=== PATIENT | female | born 1990 | race Caucasian/White ===

== ENCOUNTER 2021-07-24 06:27 | Inpatient (IN) | payer OTHER, SELFPAY ==
--- NOTE | 2021-07-03 12:54 | PC.NURSE ---
HERMILO VILLATORO STATES ,HE IS SHEELA'S LEGAL GUARDIAN FOR FINANCES AND HOUSING. HERMILO STATES SHEELA LEGALLY CAN SIGN HER OWN CONSENTS FOR TREATMENT INSTRUCTED HERMILO -HE WILL NEED TO BRING A COPY OF LEGAL GUARDIANSHIP TO MEDICAL RECORDS SO IT CAN BE PLACED ON HER CHART AND SO HE CAN GET INFORMATION REGARDING SHEELA
[2021-07-24] VITALS (125 sets, daily range): BP systolic 81–145; BP diastolic 49–89; PULSE 60–254; RESP 16; TEMP 36.6–37; O2SAT 96–100; BMI 28.3
[2021-07-24] MEDS: OXYTOCIN 30 UNITS/NS 500 ML 30 UNITS/500 ML BAG IV CONT (07:13)
[2021-07-24 07:14] LABS: Basophils Percent Auto 0.4 % (0.2-1.2); Eosinophils Absolute Auto 0.1 K/mm3 (0-0.3); Eosinophils Percent Auto 0.9 % (0-4.4); Hematocrit 32.5 % (37.0-47.0); Hemoglobin 10.4 g/dL (12.0-15.0); Immature Granulocyte Absolute 0.08 K/mm3 (0.00-0.031); Immature Granulocyte Percent A 0.8 % (0-0.5); Lymphocytes Absolute Auto 2.05 K/mm3 (0.9-3.2); Lymphocytes Percent Auto 19.8 % (18.3-44.2); Mean Corpuscular Hemoglobin 26.8 pg (26-34); Mean Corpuscular Volume 83.8 fl (80-100); Mean Platelet Volume 10.1 fl (7.4-10.4); Monocytes Absolute Auto 0.8 K/mm3 (0.1-0.6); Monocytes Percent Auto 7.7 % (2.6-8.5); Neutrophils Absolute Auto 7.3 K/mm3 (1.3-6.7); Neutrophils Percent Auto 70.4 % (45.5-73.1); Platelet Count Result 264 k/mm3 (150-375); Red Blood Count 3.88 M/mm3 (4.2-5.4); White Blood Count 10.4 K/mm3 (4.5-10.0)
[2021-07-24] MEDS: LACTATED RINGERS 1,000 ML 125 ML IV CONT ×2 (07:14→09:44)
[2021-07-24] MEDS: AMPICILLIN 2 GM/NS 100 ML 2 GM/100 ML BAG IVPB (07:14)
--- NOTE | 2021-07-24 07:27 | WPDOBADMIT ---
Obstetrics - Admit Note Admission Note: record reviewed. No pertinent additions to the history and/or any subsequent changes in the physical findings that are not consistent with the expected course of the were found. IOL at 39 wks, gbs positive, SVE 2/60/-2 AROM moderate amount of clear odorless fluid Additions to the history and/or subsequent changes in the physical findings follow. None.
--- NOTE | 2021-07-24 07:33 | LDADM ---
This patient, Windy Robles, was admitted to Labor/Delivery/Recovery 105 on 07/24/21 at 06:27. Plans for labor, pain management and were discussed with patient. Patient/family oriented to hospital policies and general routines including ID bracelet, bed and alarms, visiting hours, pain management, procedures, bathroom and other care routines, personal items, smoking policy, room service/diet and guest tray routines, security routines, and visiting hours. Patient/Family are encouraged to report perceived risks to care and to ask questions if they do not understand what they are told or what they should do. See OBIX for further documentation.
[2021-07-24 08:52] LABS: Rapid Plasma Reagin Non-Reactive (NonReactive)
--- NOTE | 2021-07-24 09:28 | WPDANESEPPF ---
Anes - Initial Pre Proc Eval Procedure: labor epidural Date/Time: 07/24/21 09:28 Surgeon: Jann Rudolph MD Pre Op Diagnosis: labor pain Pre Op Diagnosis: Induction of Labor Patient Data Age: 30 Gender: F Height: 1.63 m Weight: 75 kg Last Vital Signs Temp 36.6 C 07/24/21 08:00 Pulse 90 07/24/21 09:25 BP 128/67 07/24/21 09:25 Pulse Ox 100 07/24/21 09:26 Allergies Allergy/AdvReac Type Severity Reaction Status Date / Time No Known Allergies Allergy Unknown Unverified 08/08/19 11:56 Home Medications Medication Instructions Recorded Confirmed Type ferrous sulfate 325 mg PO DAILY 07/03/21 07/03/21 History prenat.vits,leah,bbk-htav-ixqhx 1 tablet PO DAILY 07/03/21 07/03/21 History [ #2] Laboratory Tests 07/24/21 07/24/21 07/24/21 06:48 06:48 06:48 WBC 10.4 K/mm3 H K/mm3 (4.5-10.0) RBC 3.88 M/mm3 L M/mm3 (4.2-5.4) Hgb 10.4 g/dL L g/dL (12.0-15.0) Hct 32.5 % L % (37.0-47.0) MCV 83.8 fl fl (80-100) MCH 26.8 pg pg (26-34) MCHC 32.0 g/dl g/dl (32-36) RDW 14.0 % % (11.5-14.5) Plt Count 264 k/mm3 k/mm3 (150-375) MPV 10.1 fl fl (7.4-10.4) Immature Gran % (Auto) 0.8 % H % (0-0.5) Neut % (Auto) 70.4 % % (45.5-73.1) Lymph % (Auto) 19.8 % % (18.3-44.2) [place] % (Auto) 7.7 % % (2.6-8.5) Eos % (Auto) 0.9 % % (0-4.4) Baso % (Auto) 0.4 % % (0.2-1.2) Lymph # (Auto) 2.05 K/mm3 K/mm3 (0.9-3.2) [place] # (Auto) 0.8 K/mm3 H K/mm3 (0.1-0.6) Eos # (Auto) 0.1 K/mm3 K/mm3 (0-0.3) Baso # (Auto) 0.0 K/mm3 K/mm3 (0.0-0.1) Abs Immat Gran (auto) 0.08 K/mm3 H K/mm3 (0.00-0.031) Absolute Neuts (auto) 7.3 K/mm3 H K/mm3 (1.3-6.7) Absolute Nucleated RBC 0.0 K/mm3 K/mm3 (0.0-0.012) Nucleated RBC % 0.0 % % (0.0-0.2) RPR Non-reactive (NonReactive) Blood Type O Positive Antibody Screen Negative Patient hx anesthesia problems: none Family hx anesthesia problems: none [facility] Past Medical History Medical History (Updated 07/24/21 @ 09:28 by Bernardo Mcleod DO) Anxiety Autism Bipolar disorder Family History Family History (Updated 07/03/21 @ 12:20 by Kelly Gamez RN) Mother Dialysis patient Social History Social History Substance use: never Spiritual care concerns: No Anes - Eval Final PreProcedure Day of Procedure 07/24/21 09:28 Patient weight: overweight ASA classification: III Anesthesia type and monitoring: regional epidural and standard monitoring Informed Consent: The patient's anesthetic plan and its attendant risks and benefits were discussed with the patient/family/POA. Questions were solicited and answers provided to the satisfaction of the patient/family/POA.
[2021-07-24] MEDS: ONDANSETRON INJ 4 MG/2 ML VIAL IV PUSH (09:56)
[2021-07-24] MEDS: AMPICILLIN 1 GM/NS 50 ML 1 GM/50 ML BAG IVPB (11:15)
[2021-07-24] MEDS: fentaNYL CITRATE INJ (*CRX) 100 MCG/2 ML VIAL 50 MCG IV PUSH (11:15)
--- NOTE | 2021-07-24 12:33 | PM.OBPRVD ---
OB - Delivery Note Procedure Delivery date: 07/24/21 Procedure: vaginal delivery Intrapartal events: None Induction method: AROM and per pitocin protocol Delivery monitor: external FHT and external uterine Route of delivery: Laceration Description: Perineal - 1st Degree Delivery repair: vicryl Specimen: No Quantitative Blood Loss (ml): 65 Anesthesia type: Epidural Disposition: floor Baby Date of : 07/24/21 Time of : 12:22 Weeks of gestation at delivery: 39 Infant gender: Female Weight (pounds): 6 Weight (ounces): 4 presentation: vertex position: Left Occiput Anterior Placenta delivery description: Spontaneous cord vessel description: 3 Vessels, Nuchal Cord, Loose, Reduced, Clamped/Cut and Delayed Cord Clamping score one minute: 8 score five minutes: 9 Narrative: mother and baby stable, delayed cord clamping
[2021-07-24] MEDS: OXYTOCIN 30 UNITS/NS 500 ML 30 UNITS/500 ML BAG 125 UNITS IV CONT (12:58)
[2021-07-24] MEDS: IBUPROFEN 600 MG TABLET PO (14:25)
[2021-07-24] MEDS: WITCH HAZEL 40 PADS 1 PAD TOPICAL (14:26)
--- NOTE | 2021-07-24 16:17 | OBPPTRN ---
1513-Patient transferred to post room #284 via wheelchair. Support person present. Oriented to unit, room, information board, rooming in, admission packet and security measures. Patient verbalizes understanding.
[2021-07-25 05:01] VITALS: BP 104/64; PULSE 80; RESP 16; TEMP 36.7; O2SAT 98
[2021-07-25 06:04] LABS: Hemoglobin 9.4 g/dL (12.0-15.0)
--- NOTE | 2021-07-25 07:13 | PM.OBPNVD ---
OB - PN: Subj Subjective Date/time seen: 07/25/21 07:13 Patient comments: no complaints baby status: doing well OB - PN: Obj Data Labs CBC & Chem 7: 07/25/21 04:59 Labs: Laboratory Results - last 24 hr 07/24/21 07/24/21 07/24/21 06:48 06:48 06:48 WBC 10.4 H RBC 3.88 L Hgb 10.4 L Hct 32.5 L MCV 83.8 MCH 26.8 MCHC 32.0 RDW 14.0 Plt Count 264 MPV 10.1 Immature Gran % (Auto) 0.8 H Neut % (Auto) 70.4 Lymph % (Auto) 19.8 [place] % (Auto) 7.7 Eos % (Auto) 0.9 Baso % (Auto) 0.4 Lymph # (Auto) 2.05 [place] # (Auto) 0.8 H Eos # (Auto) 0.1 Baso # (Auto) 0.0 Abs Immat Gran (auto) 0.08 H Absolute Neuts (auto) 7.3 H Absolute Nucleated RBC 0.0 Nucleated RBC % 0.0 RPR Non-reactive Blood Type O Positive Antibody Screen Negative 07/25/21 04:59 WBC RBC Hgb 9.4 L Hct 30.0 L MCV MCH MCHC RDW Plt Count MPV Immature Gran % (Auto) Neut % (Auto) Lymph % (Auto) [place] % (Auto) Eos % (Auto) Baso % (Auto) Lymph # (Auto) [place] # (Auto) Eos # (Auto) Baso # (Auto) Abs Immat Gran (auto) Absolute Neuts (auto) Absolute Nucleated RBC Nucleated RBC % RPR Blood Type Antibody Screen OB - PN A/P Plan day: 1 Plan: routine care Time Spent With Patient Time: Total time spent is greater than 50% in coordination of care (as documented) at patient's floor/unit and/or counseling patient: Time with patient: less than 15 minutes Review of Systems Review of Systems: All systems reviewed & are unremarkable except as noted in HPI and below Exam Narrative: Fundus firm and vaginal flow controlled. No lower ext redness, warmth, or edema. Negative homans. Const: General: comfortable Chest: Breast/axilla inspection: normal inspection of the breasts Resp: Effort & Inspection: normal respiratory effort Cardio: Rate: regular rate GI: GI Palp: Yes Soft to palpation Psych: Appearance: grossly normal Affect: normal affect Attitude: cooperative Thought content: Yes Normal thought content present Judgement: Good judgement present (Psych)
--- NOTE | 2021-07-25 08:49 | WPDANLDPN2 ---
Anes-Prog Note L&D Date/Time: 07/25/21 08:49 Neuraxial method: epidural Epidural/Spinal procedure site: clean & non-tender Neuro status: Neuro function grossly intact. Cardiovascular status: normal Respiratory status: normal Airway patency: baseline Mental status: baseline Post-Op hydration status: normal Vital Signs: Last Vital Signs Temp 98.0 F 07/25/21 05:01 Pulse 80 07/25/21 05:01 Resp 16 07/25/21 05:01 BP 104/64 07/25/21 05:01 Pulse Ox 98 07/25/21 05:01 Pain score (VAS): 0 Post-procedural complaints: other (no relief with epidural.pt states first epidural was one sided. catheter replaced which provided no relief for labor or delivery. pt states she did get some relief during repair ) Patient feedback: Patient satisfied with anesthetic care.
[2021-07-25 09:00] VITALS: BP 125/75; PULSE 70; RESP 16; TEMP 36.9; O2SAT 99
[2021-07-25] MEDS: DOCUSATE SODIUM 100 MG CAPSULE PO ×2 (09:09→16:26)
[2021-07-25] MEDS: IBUPROFEN 600 MG TABLET PO ×2 (09:09→16:26)
[2021-07-25] MEDS: POLYSACCHARIDE IRON COMPLEX 150 MG CAPSULE PO ×2 (09:09→16:25)
[2021-07-25 12:00] VITALS: BP 105/62; PULSE 73; RESP 16; TEMP 36.4; O2SAT 100
[2021-07-25 19:37] VITALS: BP 109/54; PULSE 63; RESP 16; TEMP 36.9; O2SAT 99
[2021-07-26 07:15] VITALS: BP 114/71; PULSE 70; RESP 16; TEMP 36.6; O2SAT 99
[2021-07-26] MEDS: IBUPROFEN 600 MG TABLET PO (07:25)
[2021-07-26] MEDS: POLYSACCHARIDE IRON COMPLEX 150 MG CAPSULE PO (07:25)
[2021-07-26] MEDS: DOCUSATE SODIUM 100 MG CAPSULE PO (07:26)
--- NOTE | 2021-07-26 09:34 | PM.OBPNVD ---
OB - PN: Subj Subjective Date/time seen: 07/26/21 09:34 Patient comments: no complaints baby status: doing well OB - PN: Obj Data Labs CBC & Chem 7: 07/25/21 04:59 OB - PN A/P Plan day: 2 Plan: routine care and discharge home (F/U in 4 weeks) Time Spent With Patient Time: Total time spent is greater than 50% in coordination of care (as documented) at patient's floor/unit and/or counseling patient: Time with patient: less than 15 minutes Review of Systems Review of Systems: All systems reviewed & are unremarkable except as noted in HPI and below Exam Narrative: Fundus firm and vaginal flow controlled. No lower ext redness, warmth, or edema. Negative homans. Const: General: comfortable Chest: Breast/axilla inspection: normal inspection of the breasts Resp: Effort & Inspection: normal respiratory effort Cardio: Rate: regular rate GI: GI Palp: Yes Soft to palpation Psych: Appearance: grossly normal Affect: normal affect Attitude: cooperative Thought content: Yes Normal thought content present Judgement: Good judgement present (Psych)
--- NOTE | 2021-07-26 09:35 | P.DS_ITS ---
DS: Admitting Diagnosis Discharge Date 07/26/21 Admitting Diagnosis Induction of labor OB - DS: Summary OB Procedures : None OB Procedures Intrapartum: Spontaneous Vag Delivery OB Procedures: : None Time Spent with Patient Time attestation: Total time spent providing and/or coordinating discharge ser vices: Discharge Plan Discharge Attending physician on discharge: Mckenna Hatfield Discharging Clinician: Christiane Ramos Patient Disposition: Home, Self-Care Activity: pelvic rest Diet: as tolerated Patient Instructions: Antibiotic Form Stand Alone Forms: General Discharge Information Follow-up/Referrals: Mckenna Hatfield CNM [Certified Nurse [employer] Associate] - Discharge Medications: Continued ferrous sulfate 325 mg (65 mg iron) Tablet 325 mg PO DAILY RF: 0 #2 Tablet 1 tablet PO DAILY RF: 0 Date of admission: 07/24/21 06:27 Primary Care Provider: Dariel,Yari Saldaña Admitting Provider: Jann Rudolph Attending physician on admission: Jann Rudolph Condition: Stable
[2021-07-29 10:54] VITALS: BP 117/72; PULSE 90; RESP 20; TEMP 37.4; O2SAT 100
== END 2021-07-26 11:49 | disposition home or self-care (01) | DRG 560 ==
LOC: ANHLDR 06:29 → ANHOB2 15:22
PROVIDERS: Advanced Practice Midwife; Admitting Provider Obstetrics & Gynecology; PCP Physician Assistant; Visit Provider Obstetrics & Gynecology
DX: O99.824 Streptococcus B carrier state complicating childbirth (principal); Z37.0 Single live birth; Z3A.39 39 weeks gestation of pregnancy; O70.0 First degree perineal laceration during delivery; O69.81X0 Labor and delivery complicated by cord around neck, without compression, not applicable or unspecified; F31.9 Bipolar disorder, unspecified; F41.9 Anxiety disorder, unspecified; F84.0 Autistic disorder
CPT/HCPCS: 36415; 85014; 85018; 85025; 86592; 86850; 86900; 86901; A9270; J0290; J2405; J2590; J2795; J3010; J7120

== ENCOUNTER 2021-10-21 01:43 | Day surgery (SDC) | payer OTHER, SELFPAY ==
[2021-10-15 10:51] VITALS: BMI 25.9
--- NOTE | 2021-10-15 11:00 | PC.NURSE ---
Report to the Outpatient Waiting Room, entrance under the green pavilion located off [facility], at time 0730 on date 10/21/21. OR Time: 0930. - You and your visitor will be asked a series of questions to screen for COVID 19 for your protection. - A mask is required within the hospital. - Only one visitor is allowed at this time. Patient visitors will be guided where to wait when not with patient. Preoperative COVID Testing Requirements: No COVID Test needed if: (proof is required; if not received patient will have Rapid Test prior to entry) - Patient has received COVID Vaccine at least 14 days prior to procedure date or - Patient has positive COVID test result within last 90 days of surgery date. COVID Test needed if above criteria is not met If not COVID vaccinated a COVID test must be conducted within 72 hours of surgery and patient is asked to isolate self from time of testing until procedure. You will go to the [facility] for your COVID testing. The [facility] is located at the corner of [address] [facility]. You will only be called if COVID results are positive and your surgeon may reschedule your elective surgery date. Patients may have clear liquids (water, carbonated beverages, clear teas, apple juice) until 3 hours prior to surgery with a maximum of 20 ounces. - No food from midnight until time of surgery - Infants may have breast milk until 4 hours before surgery, infant formula 6 hours prior to surgery. - Children will be allowed to drink immediately following surgery. If applicable, please bring a bottle or sippy cup to assist with drinking. Juice, water, soda, and popsicles are readily available. For infants on formula, please bring formula the day of surgery. Pacifiers are allowed. Take the following medications with a SIP of water the morning of surgery: NONE Medications to discontinue per physician: N/A Date to take last dose: N/A Please no make-up, nail prydeinig, hairspray, perfume, deodorant, or body powder the day of surgery. No jewelry (including any body piercings) or valuables the day of surgery, leave them at home. Please take a shower or bath the night before, or the morning of, surgery with an antibacterial soap. Wear comfortable, loose fitting clothing. Children are encouraged to wear pajamas. - Jewelry must be removed prior to entering the operating room. Rings and piercings that are not removed may be cut off. - The hospital will not accept responsibility for valuables. - Please leave all valuables, including medications, at home the day of surgery. If you are going home after surgery, a licensed straddle truck driver must drive you home. - NO public transportation without another adult. - We recommend that an adult stay with you for 24 hours following discharge. - We also recommend that you do not drive, make important decision, drink alcoholic beverages, or take any drugs that were not prescribed by your health care provider for at least 24 hours after your discharge time. For Pediatric surgeries, we recommend two adults accompany the child home (only one inside the building at this time). Follow any additional instructions given to you from your surgeon. Telephone instructions given to SHEELA ENRIQUE and asked if any additional questions and then verbalized understanding. Patient advised to call surgeon office or pre surgery nurse liaison [phone] if any additional questions.
[2021-10-21] VITALS (9 sets, daily range): BP systolic 99–112; BP diastolic 45–64; PULSE 57–90; RESP 16–20; TEMP 36.2–36.8; O2SAT 97–100; BMI 26.2
[2021-10-21] MEDS: LACTATED RINGERS 1,000 ML 30 ML IV CONT ×2 (08:12→10:04)
[2021-10-21] MEDS: ACETAMINOPHEN 500 MG TABLET 1000 MG PO (08:13)
[2021-10-21] MEDS: KETOROLAC 15 MG/ML VIAL (*BKC) IV PUSH (08:13)
--- NOTE | 2021-10-21 08:21 | WPDANESEPPF ---
Anes - Initial Pre Proc Eval Procedure: Operation Date: 10/21/21 09:30 Proposed Procedures p Laparoscopic Bilateral Salpingectomy - Jann Rudolph MD Date/Time: 10/21/21 08:21 Surgeon: Jann Rudolph MD Pre Op Diagnosis: desires sterilization Patient Data Age: 31 Gender: F Height: 1.63 m Weight: 69.45 kg Allergies Allergy/AdvReac Type Severity Reaction Status Date / Time No Known Allergies Allergy Unknown Verified 10/21/21 07:57 Home Medications Medication Instructions Recorded Confirmed Type No Home Medications 10/15/21 10/21/21 History Patient hx anesthesia problems: none Family hx anesthesia problems: none Results Review: All pre-operative results and documents have been reviewed as part of the pre-operative evaluation. [facility] Past Medical History Medical History Anxiety Autism Bipolar disorder Surgical History Surgical History (Updated 10/21/21 @ 08:21 by Cyrus Coburn MD) H/O arthroscopic knee surgery Family History Family History Mother Dialysis patient Social History Social History Smoking status: Never smoker Alcohol intake: never Substance use: never Substance use type: does not use Living arrangements: alone Spiritual care concerns: No Anes - Eval Final PreProcedure Day of Procedure 10/21/21 08:21 Patient weight: overweight Heart: regular rate and rhythm Lungs: clear to auscultation Airway: Mallampati scale class II Neurological: alert and oriented Last oral intake: >/= 8 hours ASA classification: II Emergent: no Anesthetic plan: proceed Anesthesia type and monitoring: general GIVS and standard monitoring Results Review: All pre-operative results and documents have been reviewed as part of the pre-operative evaluation. Informed Consent: The patient's anesthetic plan and its attendant risks and benefits were discussed with the patient/family/POA. Questions were solicited and answers provided to the satisfaction of the patient/family/POA.
--- NOTE | 2021-10-21 08:30 | WPDHPUPDATE1 ---
History and Physical Update Update Date/Time: 10/21/21 08:30 History and Physical has been reviewed, including an updated exam of the patient. There are NO changes in the patient's condition. Risks, benefits, and alternatives have been discussed and questions answered. Patient agrees to proceed with procedure.
--- NOTE | 2021-10-21 10:12 | W.PM.PROC2 ---
Procedure Note - Detailed Date of Procedure 10/21/21 Pre-op Diagnosis desires sterilization Post-op Diagnosis same Procedure Performed Laparoscopic bilateral salpingectomy, right ovarian cystectomy. Surgeon Jann Rudolph MD Anesthesia general Indications Unwanted fertility Findings Normal pelvic anatomy, right ovarian corpus luteum cyst. Description of Procedure The patient was taken the operating room. She was prepped and draped in the dorsal lithotomy position after induction of general anesthesia. A 5 mm skin incision was made in the left upper quadrant of the abdominal skin. A 5 mm trocar was inserted the intra-abdominal cavity under direct visualization of the scope. Pneumoperitoneum was achieved. A 5 mm trocar was inserted in the left lower quadrant identical fashion. A 5 mm infraumbilical trocar was inserted in identical fashion as well. The bilateral fallopian tubes were removed. This was done by using a LigaSure cautery. The mesosalpinx adjacent to the tube was cauterized transected with LigaSure. This was initiated in the area the ovary and in a stepwise fashion moved medially to the area of the cornu of the uterus. Once there the fallopian tube was cauterized and transected. This was done in identical fashion on each side. After grasping the right ovary it began to bleed. This was a friable corpus luteum cyst that required resection to get the bleeding temporized. Scissors were used to remove some of the parenchyma and cyst. Cyst was peeled out also. Cautery was used make the cut surface hemostatic. It was hemostatic at the end of the cystectomy. The fallopian tubes were taken out through the left lower quadrant trocar site. The pneumoperitoneum was reduced. The trocars removed. The skin was closed with subcuticular 4 Monocryl and covered with Dermabond. She was taken to cover stable condition. Sponge lap and needle counts were correct x2. Estimated Blood Loss 20 Drains No Packing No Pathology yes Complications No immediate complications Condition stable Disposition PACU
== END 2021-10-21 12:15 | disposition home or self-care (01) ==
PROVIDERS: PCP Physician Assistant; Visit Provider Obstetrics & Gynecology
PROC: (CPT 49320; principal; 2021-10-21 09:30)
DX: Z30.2 Encounter for sterilization (principal); N83.11 Corpus luteum cyst of right ovary; N83.8 Other noninflammatory disorders of ovary, fallopian tube and broad ligament
CPT/HCPCS: 58661; 58662; 88302; 88305; A9270; J0330; J1100; J1885; J2250; J2270; J2405; J2704; J7120

== ENCOUNTER 2021-11-05 09:36 | Emergency (ER) | payer OTHER, SELFPAY ==
[2021-11-05 09:55] VITALS: BP 118/80; PULSE 97; RESP 16; TEMP 37.2; O2SAT 98
--- NOTE | 2021-11-05 10:17 | ED.EAR ---
HPI - Ear Problem General Chief complaint: Ear Stated complaint: Ear pain Time Seen by Provider: 11/05/21 10:18 Source: patient and RN notes reviewed Mode of arrival: ambulatory Limitations: no limitations History of Present Illness HPI Narrative: 31-year-old female presents concern for left ear pain. She reports cold symptoms for 2 weeks, however feels like now her left ear is clogged hearing is decreased. Reports sounds like she is underwater. She denies intervention. She denies fever, cough, body aches, chills. MD Complaint: ear pain Related Data Allergies Allergy/AdvReac Type Severity Reaction Status Date / Time No Known Allergies Allergy Unknown Verified 10/21/21 07:57 Review of Systems Review of Systems: CONSTITUTIONAL: Denies malaise, chills, sweats, or fever. EYES: Denies visual changes, redness, or discharge. ENT: Reports rhinorrhea, congestion, otalgia. Denies sinus pain, otalgia sore throat. CARDIOVASCULAR: Denies chest pain, palpitations, or edema. RESPIRATORY: Denies cough. Denies dyspnea. GASTROINTESTINAL: Denies abdominal pain, nausea, vomiting, diarrhea SKIN: Denies rash or itching. MUSCULOSKELETAL: Denies myalgia. NEUROLOGIC: Denies headache. All systems reviewed & are unremarkable except as noted in HPI and below PMFSH Past Medical History Medical History (Updated 11/05/21 @ 11:14 by Caitlin Perez NP) Anxiety Autism Bipolar disorder Surgical History Surgical History (Updated 10/21/21 @ 08:21 by Cyrus Coburn MD) H/O arthroscopic knee surgery Family History Family History Mother Dialysis patient Social History Social History Smoking status: Never smoker Alcohol intake: never Substance use: never Substance use type: does not use Spiritual care concerns: No Comments At time of signature, agree with nursing past medical, surgical, social and family history. There is no relevant family history pertinent to the presenting complaint Exam Narrative: GENERAL: Well-appearing, well-nourished, and in no acute distress. HEAD: Normocephalic EYES: PERRLA, conjunctivae clear ENT: Nares clear. Mucous membranes moist. TM not visible due to cerumen impaction bilaterally; left tragal tenderness. Oropharynx not erythematous without lesions. Tonsils not enlarged and without exudate, no drooling, no hoarseness, no trismus, uvula midline. NECK: Supple. No lymphadenopathy CHEST: Clear to auscultation, breath sounds equal. No wheezing, rhonchi, rales, or stridor. No respiratory distress, speaks in full sentences. HEART: Regular rate and rhythm. No murmur heard. SKIN: Warm, dry, no rash. NEURO: Alert and oriented x3. PSYCH: Normal mood and affect Course Course Emergency Course: Patient is aware of diagnosis, understands and agrees to treatment plan. Anticipatory guidance given. Patient agrees to follow-up as directed and is aware of reasons to seek care at the emergency department. Portions of this record may have been created with voice recognition software Vital Signs Vital signs: Vital Signs Temperature 99.0 F 11/05/21 09:55 Pulse Rate 97 11/05/21 09:55 Respiratory Rate 16 11/05/21 09:55 Blood Pressure 118/80 11/05/21 09:55 Pulse Oximetry 98 11/05/21 09:55 Temperature 99.0 F 11/05/21 09:55 Pulse Rate 97 11/05/21 09:55 Respiratory Rate 16 11/05/21 09:55 Blood Pressure 118/80 11/05/21 09:55 Pulse Oximetry 98 11/05/21 09:55 Reviewed. Procedures Ear Wax Removal Left Ear: Ear Wax Removal Date: 11/05/21 Ear Wax Removal Time: 10:18 Cerumenolytic Used: 5-10% Sodium Bicarb solution Results: Re-examined: some cerumen remains Ear Canal Exam: atraumatic Patient Tolerated Procedure: no complications Technique: ear canal irrigated and ear canal curetted Additional Comments: Unable to fully disimp
== END 2021-11-05 11:18 | disposition home or self-care (01) ==
PROVIDERS: Emergency Provider Nurse Practitioner
DX: H61.22 Impacted cerumen, left ear (principal); F84.0 Autistic disorder
CPT/HCPCS: 69210; 99213; G0463

== ENCOUNTER 2024-06-22 10:51 | Emergency (ER) | payer OTHER, SELFPAY ==
[2024-06-22 11:04] VITALS: BP 128/72; PULSE 81; RESP 16; TEMP 36.8; O2SAT 100
--- NOTE | 2024-06-22 11:13 | ED.BACK ---
HPI - Back Pain/Injury General Chief Complaint: Urogenital-Female Stated Complaint: right side back pain Time Seen by Provider: 06/22/24 11:13 Source: patient Mode of arrival: ambulatory Limitations: no limitations History of Present Illness HPI Narrative: 33-year-old female presents with complaint of intermittent right-sided low back pain for the past week. Notices pain more when sitting. Movement, lifting does not make pain worse. Ambulatory with steady gait. No radiation of pain. Denies urinary symptoms. Afebrile. Patient denies having any pain at this time. All systems reviewed and negative except as noted above. Related Data Allergies Allergy/AdvReac Type Severity Reaction Status Date / Time No Known Allergies Allergy Unknown Verified 06/22/24 10:59 Review of Systems Review of Systems: CONSTITUTIONAL: Denies fever, chills, or sweats. EYES: Denies visual changes, redness, or discharge. ENT: Denies rhinorrhea, congestion, sore throat, or otalgia. CARDIOVASCULAR: Denies chest pain, palpitations, or edema. RESPIRATORY: Denies cough or dyspnea. GASTROINTESTINAL: Denies abdominal pain, nausea, vomiting, or diarrhea. GENITOURINARY: Denies dysuria or hematuria. SKIN: Denies rash or itching. MUSCULOSKELETAL: Reports right-sided low back pain. Denies joint pain, or myalgia. NEUROLOGIC: Denies headache, numbness, or weakness. PSYCHIATRIC: Denies anxiety or depression. All other systems reviewed are negative, except as documented in HPI. [facility] Past Medical History Medical History (Updated 06/22/24 @ 11:23 by Magalis Ceballos NP) Anxiety Autism Bipolar disorder Surgical History Surgical History (Updated 10/21/21 @ 08:21 by Cyrus Coburn MD) H/O arthroscopic knee surgery Family History Family History Mother Dialysis patient Social History Social History Smoking status: Never smoker Alcohol intake: never Substance use: never Substance use type: does not use Living arrangements: alone Spiritual care concerns: No Comments At time of signature, agree with nursing past medical, surgical, social and family history. There is no relevant family history pertinent to the presenting complaint. Exam Narrative: GENERAL: This is a well-nourished, well-developed patient, in no apparent distress. HEAD: normocephalic, atraumatic. EYES: PERRL. Sclera clear/white. Vision is grossly intact. EARS: External ears normal NOSE: External nose normal NECK: Neck supple, non-tender without lymphadenopathy, masses or thyromegaly. CARDIOVASCULAR: Regular rate and rhythm without murmurs, gallops, or rubs. RESPIRATORY: Clear to auscultation. Breath sounds equal bilaterally. No wheezes, rales, or rhonchi. GASTROINTESTINAL: Abdomen soft, non-tender, nondistended. Bowel sounds are active. No hepato-splenomegaly, or palpable masses. No guarding. SKIN: warm, Dry, intact with no suspicious lesions or rash, good texture and turgor. NEURO: awake, alert, and oriented to person, place and time. There were no obvious focal neurologic abnormalities. EXTREMITIES: No joint tenderness, effusion, or edema noted. No calf tenderness. Negative Homans sign bilaterally. BACK: Nontender without deformity. No CVA tenderness. normal range of motion. Course Course Level of Care: Express Care Visit Vital Signs Vital signs: Vital Signs Temperature 36.8 C 06/22/24 11:04 Pulse Rate 81 06/22/24 11:04 Respiratory Rate 16 06/22/24 11:04 Blood Pressure 128/72 06/22/24 11:04 Pulse Oximetry 100 06/22/24 11:04 Oxygen Delivery Room Air 06/22/24 11:04 Temperature 36.8 C 06/22/24 11:04 Pulse Rate 81 06/22/24 11:04 Respiratory Rate 16 06/22/24 11:04 Blood Pressure 128/72 06/22/24 11:04 Pulse Oximetry 100 06/22/24 11:04 Oxygen Delivery Room Air 06/22/24 11:04 Reviewed
[2024-06-22 11:24] LABS: EDUAAPPEAR Cloudy; EDUABILI Negative; EDUABLOOD Negative; EDUACOLOR1 Yellow; EDUAGLUCOSE Negative; EDUAKETONE Negative; EDUALEUKO 1+; EDUANITRATE Negative; EDUAPROTEIN Negative; EDUASPGRAVITY 1.015
== END 2024-06-22 11:30 | disposition home or self-care (01) ==
PROVIDERS: Emergency Provider Nurse Practitioner Family; PCP Physician Assistant
DX: N39.0 Urinary tract infection, site not specified (principal); S39.012A Strain of muscle, fascia and tendon of lower back, initial encounter; X58.XXXA Exposure to other specified factors, initial encounter; F84.0 Autistic disorder
CPT/HCPCS: 81003; 87077; 87086; 87088; 87186; 99213; G0463